=== PATIENT | male | born 1990 | race Caucasian/White ===

== ENCOUNTER 2024-10-09 10:02 | Emergency (ER) | payer BC, SELFPAY ==
[2024-10-09] VITALS (10 sets, daily range): BP systolic 105–140; BP diastolic 78–90; PULSE 65–81; RESP 14–16; TEMP 36.6; O2SAT 95–99
--- NOTE | ~2024-10-09 | XR_ITS ---
Portable chest x-ray Comparison: None Clinical History: Chest pain Findings: Lungs are clear, without focal consolidation or pleural effusion. Cardiomediastinal silho uette is unremarkable. Bones and soft tissues are unremarkable. Impression: Normal chest. Reviewed, dictated and finalized at location M. Impression: Normal chest.
--- NOTE | 2024-10-09 10:30 | ED_ITS ---
HPI - Chest Pain General Chief Complaint: Chest Pain Stated Complaint: PAIN WITH BREATHING Time Seen by Provider: 10/09/24 10:22 Source: patient Mode of arrival: ambulatory Limitations: no limitations History of Present Illness HPI narrative: 34-year-old male with a history of smoking the past 12 years( off and on) presents to the ED with a 2 day history of -- left chest pain. Pain is rated a 6/10. No radiation of the pain. Pain is not related to activity. No exacerbating or relieving factors. Pain is a dull ache. No cough or sputum production. No shortness of breath. No prior episodes of chest pain. MD complaint: chest pain Onset (ago): day(s) ( Two days) Timing of current episode: episodic Prior episodes: No Pain location: left chest Pain radiation: none Severity: moderate Pain scale (0-10): 6 Quality: aching Relieving factors: nothing Exacerbating factors: nothing Treatment prior to arrival: none Risk Factors Coronary artery disease risk factors: smoking history Related Data Allergies Allergy/AdvReac Type Severity Reaction Status Date / Time No Known Allergies Allergy Verified 10/09/24 10:10 Review of Systems 2 Review of Systems: All systems reviewed & are unremarkable except as noted in HPI and below Constitutional: Constitutional: Reports as per HPI and Reports no additional constitutional complaints Eyes: Eyes: Reports as per HPI and Reports no additional eye complaints ENT: Reports system reviewed and no additional complaints, except as documented and Reports as per HPI Cardiovascular: Cardiovascular: Reports as per HPI, Reports no additional cardiovascular complaints and Reports chest pain Respiratory: Respiratory: Reports as per HPI and Reports no additional respiratory complaints Gastrointestinal: Gastrointestinal: Reports as per HPI and Reports no additional gastrointestinal complaints Genitourinary: Genitourinary: Reports no additional male genitourinary complaints and Reports as per HPI Musculoskeletal: Musculoskeletal: Reports no additional musculoskeletal complaints and Reports as per HPI Integumentary/Breasts: Skin/Breast: Reports system reviewed and no additional complaints, except as docu and Reports as per HPI Neurologic: Reports system reviewed and no additional complaints, except as documented and Reports as per HPI Psychiatric: Psychiatric: Reports no additional psychiatric complaints and Reports as per HPI Endocrine: Endocrine: Reports no additional endocrine complaints and Reports as per HPI Hematologic/Lymphatic: Hematologic/Lymphatic: Reports no additional hematologic/lymphatic complaints and Reports as per HPI Allergic/Immunologic: Allergic/Immunologic: Reports no additional allergic/immunologic complaints and Reports as per [facility] Social History Social History (Updated 10/09/24 @ 10:33 by Silver Kirk MD) Social History: smoker Exam 2 Narrative: vitals are stable. Oxygen saturation of 99% on room air with a respiratory rate of 14. Const: General: healthy appearing and no acute distress Nutritional Appearance: well nourished Orientation/consciousness: patient oriented x3 Limitations: no limitations HENMT: Head: normal to inspection Ears: external ears normal F ciera/Nose/Sinus: Normal external nose present Face and sinus: normal facial exam Mouth: Yes Normal oral and palatal mucosa present Throat: posterior oropharynx normal Eyes: Conjunctivae: conjunctivae normal Pupils: Equal, round and reactive pupils present EOM: EOMs intact bilaterally Direct Ophthalmoscopy: no photophobia Neck: Neck: normal visual inspection, no lymphadenopathy and no meningeal signs Chest: Chest palpation & inspection: normal inspection of the chest Resp: Effort & Inspection: normal respiratory effort Auscultation: clear to auscultation bilaterally Cardio: Rate: regular rate Rhythm: regular rhythm Other: Left chest tenderness. GI: Auscultation: normal bowel sounds Other: No tenderness/rigidity / rebound. : General: Yes no CVA tenderness Male General Exam: Yes normal external exam Back/Spine/Pelvis: Back: no CVA tenderness Skin: General skin exam: normal color Rashes: no rashes Wounds: no wounds Neuro: General: patient oriented x3, moves all extremities, no meningeal signs, no focal motor deficits and CN's II-XI intact bilaterally Speech: n ormal speech Extrem: General: normal to inspection and no clubbing, cyanosis or edema Psych: Mental Status: mental status grossly normal Affect: normal affect Attitude: cooperative Course Course Emergency Course: Left chest pain-- EKG was unremarkable. Normal troponin. microcytic hypochromic anemia-- mother and father have a history of thalassemia. Vital Signs Vital signs: Vital Signs Temperature 36.6 C 10/09/24 10:05 Pulse Rate 81 10/09/24 10:05 Respiratory Rate 14 10/09/24 10:05 Blood Pressure 140/85 10/09/24 10:05 Pulse Oximetry 99 10/09/24 10:05 Oxygen Delivery Room Air 10/09/24 10:05 Temperature 36.6 C 10/09/24 10:05 Pulse Rate 66 10/09/24 10:31 Respiratory Rate 14 10/09/24 10:31 Blood Pressure 105/90 10/09/24 10:31 Pulse Oximetry 95 10/09/24 10:45 Oxygen Delivery Room Air 10/09/24 10:05 MDM - Chest Pain MDM Narrative Medical decision making narrative: left chest pain Lab Data 10/09/24 10:47 10/09/24 10:47 Labs: Lab Results 10/09/24 Range/Units 10:47 WBC 11.3 H (4.8-10.8) K/mm3 RBC 6.73 H (4.70-6.10) M/mm3 Hgb 13.1 L (14.0-18.0) g/dL Hct 41.8 (40.0-54.0) % MCV 62.1 L (78.0-102.0) fL MCH 19.5 L (27.0-31.0) pg MCHC 31.3 L (32-36) g/dL RDW 17.0 H (11.6-14.4) % Plt Count 153 (150-420) K/mm3 MPV Not Reportable Immature Gran % (Auto) 0.4 H (0.0-0.0) % Neut % (Auto) 75.2 H (50.0-70.0) % Lymph % (Auto) 14.9 L (18.0-42.0) % Woodson % (Auto) 5.6 (2.0-11.0) % Eos % (Auto) 3.3 (1.0-6.0) % Baso % (Auto) 0.6 (0.0-1.0) % Lymph # (Auto) 1.68 (1.10-4.50) K/mm3 Woodson # (Auto) 0.63 (0.10-0.90) K/mm3 Eos # (Auto) 0.37 (0.02-0.50) K/mm3 Baso # (Auto) 0.07 (0.00-0.10) K/mm3 Abs Immat Gran (auto) 0.05 H (0.00-0.00) K/mm3 Absolute Neuts (auto) 8.46 H (1.70-7.20) K/mm3 Absolute Nucleated RBC 0.00 (0.00-0.00) K/mm3 Nucleated RBC % 0.0 (0-0.0) % % Immature Plt Fraction 3.7 (1.0-7.0) % Sodium 139 (136-145) mmol/L Potassium 4.2 (3.5-5.1) mmol/L Chloride 102 (98-108) mmol/L Carbon Dioxide 28 (21-32) mmol/L Anion Gap 9 (4-12) mmol/L BUN 11 (7-18) mg/dL Creatinine 0.74 (0.70-1.30) mg/dL Estim Creat Clear Calc 136 ml/min Estimated GFR > 60 (59 - ) Glucose 98 (70-99) mg/dL Calculated Osmolality 287 (285-295) mOsm/kg Calcium 9.1 (8.5-10.1) mg/dL Total Bilirubin 0.5 (0.00-1.00) mg/dL AST < 10 L (15-37) U/L ALT 25 (16-63) U/L Alkaline Phosphatase 82 (46-116) U/L Troponin I 4.2 (0.00-60.4) ng/L Total Protein 7.5 (6.4-8.2) g/dL Albumin 4.6 (3.4-5.0) g/dL ECG Data EKG #1: ECG completion date: 10/09/24 ECG completion time: 10:11 Interpretation: normal sinus rhythm. Right axis deviation. No ST elevation. Discharge Plan Discharge Clinical Impression: Atypical chest pain Patient Disposition: Home, Self-Care Condition: Stable Instructions: Antibiotic Form, Chest Wall Pain (ED) Patient Language: Korean Follow-up/Referrals: UNKNOWN,DOCTOR [Primary Care Provider] - Time of Disposition: 11:44
--- NOTE | 2024-10-09 10:36 | ECG_ITS ---
Test Date: 2024-10-09 10:11:35 Measurements Intervals [place] Rate: 96 P: 50 WI: 158 QRS: 106 QRSD: 89 T: 0 QT: 321 QTc: 407 Interpretive Statements SINUS RHYTHM POSSIBLE RIGHT VENTRICULAR HYPERTROPHY [SOME/ALL OF: PROMINENT R IN V1, LATE TRANSITION, RAD, JORDEN, SSS] No previous ECG available for comparison Electronically Signed On 10-09-2024 13:15:48 CDT by Adria Mendoza M.D.
[2024-10-09 10:54] LABS: Basophils Absolute Auto 0.07 K/mm3 (0.00-0.10); Basophils Percent Auto 0.6 % (0.0-1.0); Eosinophils Absolute Auto 0.37 K/mm3 (0.02-0.50); Eosinophils Percent Auto 3.3 % (1.0-6.0); Hematocrit 41.8 % (40.0-54.0); Hemoglobin 13.1 g/dL (14.0-18.0); Immature Granulocyte Absolute 0.05 K/mm3 (0.00-0.00); Immature Granulocyte Percent A 0.4 % (0.0-0.0); Immature Platelet Fraction Pct 3.7 % (1.0-7.0); Lymphocytes Absolute Auto 1.68 K/mm3 (1.10-4.50); Lymphocytes Percent Auto 14.9 % (18.0-42.0); Mean Corpuscular HGB Conc 31.3 g/dL (32-36); Mean Corpuscular Hemoglobin 19.5 pg (27.0-31.0); Mean Corpuscular Volume 62.1 fL (78.0-102.0); Monocytes Absolute Auto 0.63 K/mm3 (0.10-0.90); Monocytes Percent Auto 5.6 % (2.0-11.0); Neutrophils Absolute Auto 8.46 K/mm3 (1.70-7.20); Neutrophils Percent Auto 75.2 % (50.0-70.0); Platelet Count Result 153 K/mm3 (150-420); Red Blood Count 6.73 M/mm3 (4.70-6.10); White Blood Count 11.3 K/mm3 (4.8-10.8)
--- OUTSIDE RECORDS SUMMARY | 2024-10-09 11:08 | XMS_ITS | Clinical Summary ---
Author Organization [facility] [address] Address [address] [facility] [address] [place] [address] Care Team Providers Care Physicist Nuclear Name Role Phone Colton Moreira MD Primary Care Provider [phone] Allergies Active Allergy Reactions Criticality Noted Date Comments Sulfa Rash Medium 02/16/2024 Medications multivitamin tabletIndicatio ns:Vitamin Deficiency Prevention Take 1 tablet by mouth Active melatonin 5 mg tablet nightly as needed Active sertraline (ZOLOFT) 25 mg tablet Take 1 tablet (25 mg total) by mouth daily 90 tablet 02/16/2024 Active Active Problems Problem Noted Date Diagnosed Date Encounter to establish care 02/16/2024 Assessment & Plan (02/16/2024 8:52 PM CDT): Patient's medical history, family history, medication list reviewed and updated. PHQ-9 and generalized anxiety questionnaire reviewed. He is currently self-pay. Would like to hold off on blood work. Discussed importance of diet and exercise Generalized anxiety disorder 02/16/2024 Assessment & Plan (02/16/2024 8:53 PM CDT): We discussed this in detail. Wanting to try medication. We discussed sertraline and its role. Side effects of the medication reviewed. He verbalizes understanding be interested in trying. Will started 25 mg and do close follow-up in 4 weeks. Will likely need a titration up. He verbalizes understanding. Immunizations Immunization Administration Dates Next Due Influenza, Unspecified 04/30/2023 Medical History Medical History Date Comments Anxiety Family History Medical History Relation Name Comments No Known Problems Brother Hypertension Father Hypothyroidism Mother No Known Problems Sister Relation Name Status Comments Brother Alive Father Alive Mother Alive Sister Alive Social History Tobacco Use Types Packs/Day Years Used Date Smoking Tobacco: Some Days Cigarettes Smokeless Tobacco: Never Tobacco Cessation:Ready to Q uit: Not Asked; Counseling Given: Not Answered AUDIT-C Answer Date Recorded Q1: How often do you have a drink containing alc ohol? Never 02/16/2024 Average Number of Drinks Not on file 024 Frequency of Binge Drinking Not on file 01/28 PHQ-2 Answer Date Recorded PHQ-2 Total Score (If total score is 3 or more points, staff should administer the PHQ-9) 2 02/16/2024 Personal Safety Answer Date Recorded Getting School Help Needed Not on file 02/11 Sex and Gender Information Value Date Recorded Sex Assigned at Not on file Legal Sex Male 1:07 PM CDT Gender Identity Not on file Sexual Orientation Not on file Obstetrics History Last Filed Vital Signs Vital Sign Reading Time Taken Comments Blood Pressure 120/78 02/16/2024 10:34 AM CDT Pulse 82 02/16/2024 10:34 AM CDT Temperature - - Respiratory Rate - - Oxygen Saturation 98% 02/16/2024 10:34 AM CDT Inhaled Oxygen Concentration - - Weight 93.1 kg (205 lb 3.2 oz) 02/16/2024 10:34 AM CDT Height 180.3 cm (5' 11 ) 02/16/2024 10:34 AM CDT Body Mass Index 28.62 02/16/2024 10:34 AM CDT Plan of Treatment Health Maintenance Due Date Last Done Comments Hepatitis C Screening 1992 Varicella Vaccines (1 of 2 - 13+ 2-dose series) 2005 Pneumococcal vaccine <65 (1 of 2 - PCV) 2011 Influenza Vaccine (#1) 2024 04/30/2023, 2016 Depression Screening 02/15/2025 02/16/2024, 02/16/20 24 Regular Well Visit/Exam 18-64 02/15/2025 02/16/2024 DTaP/Tdap/Td Vaccine (7 - Td or Tdap) 08/10/2030 08/10/2020, 04/10/1997, 09/10/1993, Additional history exists Hepatitis B Screening Completed 1992 , 1992, 1992 HPV Vaccines Aged Out No longer eligi ble based on patient's age to complete this topic Insurance [facility] Care Teams Physicist Nuclear Relationship Specialty Start Date End Date Colton Moreira MD [address] [address] PCP - General Internal Medicine 02/16/24
--- OUTSIDE RECORDS SUMMARY | 2024-10-09 11:08 | XMS_ITS | Clinical Summary ---
Author Organization [facility] Address [address] [place] [address] Care Team Providers Care Philosophy And Religion Instructor Name Role Phone Nacho Ramirez MD Primary Care Provider [phone] Allergies Active Allergy Reactions Criticality Noted Date Comments Sulfa Antibiotics Hives Medium 08/10/2020 Medications No known medications Active Problems No known active problems Immunizations Name Administration Dates Next Due Tdap (Boostrix) 08/10/2020 Family History Medical History Relation Comments Diabetes Paternal Grandfather Relation Status Comments Paternal Grandfather Social History Tobacco Use Types Packs/Day Years Used Date Smoking Tobacco: Never Cigarettes Smokeless Tobacco: Never Alcohol Use Standard Drinks/Week Comments Yes 0 (1 standard drink = 0.6 oz pur e alcohol) occassioanl Sex and Gender Information Value Date Recorded Sex Assigned at Not on file Legal Sex Male 8:59 PM CDT Gender Identity Not on file Sexual Orientation Not on file Last Filed Vital Signs Vital Sign Reading Time Taken Comments Blood Pressure 134/89 06/10/2022 9:38 AM LENS BLANK GAUGER Pulse 75 06/10/2022 9:38 AM LENS BLANK GAUGER Temperature 36.7 C (98 F) 06/10/2022 9:38 AM LENS BLANK GAUGER Respiratory Rate 16 06/10/2022 9:38 AM LENS BLANK GAUGER Oxygen Saturation 100% 06/10/2022 9:38 AM LENS BLANK GAUGER Inhaled Oxygen Concentration - - Weight 80.9 kg (178 lb 4 oz) 06/10/2022 9:38 AM LENS BLANK GAUGER Height 182.9 cm (6') 06/10/2022 9:38 AM LENS BLANK GAUGER Body Mass Index 24.18 06/10/2022 9:38 AM LENS BLANK GAUGER Plan of Treatment Health Maintenance Due Date Last Done Comments Annual Physical 1995 Hepatitis C 2010 Hepatitis B Vaccines (1 of 3 - 19+ 3-dose series) 2011 COVID-19 Vaccine (1 - 2023-2 5 season) 2024 Influenza Adult (#1) 2024 DTaP, Tdap and Td Vaccines ( 2 - Td or Tdap) 08/10/2030 08/10/2020 HPV Vaccines Aged Out No longer eligi ble based on patient's age to complete this topic Meningococcal B Vaccine Aged Out No l onger eligible based on patient's age to complete this topic Meningococcal Vaccine Aged Out No arpit betsey eligible based on patient's age to complete this topic Pneumococcal Vaccine: Pediat rics (0 to 5 Years) and At-Risk Patients (6 to 64 Years) Aged Out No longer eligi ble based on patient's age to complete this topic RSV Immunizations Under 20 Months Aged Out No longer eligible based on patient's age to complete this topic [place] [address] [place] [address] Care Teams Philosophy And Religion Instructor Relationship Specialty Start Date End Date Nacho Ramirez MD [address] [place] [address] PCP - General INTERNAL MEDICINE 08/10/20
--- OUTSIDE RECORDS SUMMARY | 2024-10-09 11:08 | XMS_ITS | Referral Summary ---
Author Organization [facility] [address] Address [address] [facility] 5th [place] [address] Care Team Providers Care Forging Operator Name Role Phone Colton Moreira MD Primary Care Provider [phone] Allergies Active Allergy Reactions Criticality Noted Date [...] Administration Dates Next Due Influenza, Unspecified 04/30/2023 Social History Tobacco Use Types Packs/Day Years [...] 02/16/2024 10:34 AM CDT Plan of Treatment Not on file Insurance [facility] Care Teams Forging Operator Relationship Specialty Start Date End Date Colton Moreira MD [address] [address] PCP - General Internal Medicine 02/16/24
[2024-10-09 11:10] LABS: Alanine Aminotransferase 25 U/L (16-63); Albumin Level 4.6 g/dL (3.4-5.0); Alkaline Phosphatase 82 U/L (46-116); Anion Gap 9 mmol/L (4-12); Aspartate Amino Transferase < 10 U/L (15-37); Bilirubin,Total 0.5 mg/dL (0.00-1.00); Blood Urea Nitrogen 11 mg/dL (7-18); Calcium 9.1 mg/dL (8.5-10.1); Carbon Dioxide 28 mmol/L (21-32); Chloride 102 mmol/L (98-108); Estimated CRCL calculation 136 ml/min; Estimated Glomerular Filt Rate > 60; Glucose 98 mg/dL (70-99); Osmolality Calculated 287 mOsm/kg (285-295); Potassium 4.2 mmol/L (3.5-5.1); Sodium 139 mmol/L (136-145); Total Protein 7.5 g/dL (6.4-8.2); Troponin I 4.2 ng/L (0.00-60.4)
--- OUTSIDE RECORDS SUMMARY | 2024-10-09 12:05 | XMS_ITS | Clinical Summary ---
Author Organization [facility] Address [address] [place] [address] Care Team Providers Care Engineering Job Titles Name Role Phone Nacho Ramirez MD Primary Care Provider [phone] Allergies Active Allergy Reactions Criticality Noted Date [...] Comments Blood Pressure 134/89 06/10/2022 9:38 AM CUSTOMER SUPPORT EXECUTIVE Pulse 75 06/10/2022 9:38 AM CUSTOMER SUPPORT EXECUTIVE Temperature 36.7 C (98 F) 06/10/2022 9:38 AM CUSTOMER SUPPORT EXECUTIVE Respiratory Rate 16 06/10/2022 9:38 AM CUSTOMER SUPPORT EXECUTIVE Oxygen Saturation 100% 06/10/2022 9:38 AM CUSTOMER SUPPORT EXECUTIVE Inhaled Oxygen Concentration - - Weight 80.9 kg (178 lb 4 oz) 06/10/2022 9:38 AM CUSTOMER SUPPORT EXECUTIVE Height 182.9 cm (6') 06/10/2022 9:38 AM CUSTOMER SUPPORT EXECUTIVE Body Mass Index 24.18 06/10/2022 9:38 AM CUSTOMER SUPPORT EXECUTIVE Plan of Treatment Health Maintenance Due Date [...] patient's age to complete this topic Insurance [address] [address] Care Teams Engineering Job Titles Relationship Specialty Start Date End Date Nacho Ramirez MD [address] [place] [address] PCP - General INTERNAL MEDICINE 08/10/20
--- OUTSIDE RECORDS SUMMARY | 2024-10-09 12:05 | XMS_ITS | Clinical Summary ---
Author Organization [facility] [address] Address [address] [place] [address] Care Team Providers Care Seasonal Customer Service Associate Name Role Phone Colton Moerira MD Primary Care Provider Allergies Active Allergy Reactions Criticality Noted Date [...] patient's age to complete this topic Insurance [facility] Care Teams Seasonal Customer Service Associate Relationship Specialty Start Date End Date Colton Moreira MD [address] [address] PCP - General Internal Medicine 02/16/24
--- OUTSIDE RECORDS SUMMARY | 2024-10-09 12:05 | XMS_ITS | Referral Summary ---
Author Organization [facility] [address] Address [address] [facility] 5th [place] [address] Care Team Providers Care Forensic Materials Engineer Name Role Phone Colton Moreira MD Primary Care Provider [phone] Allergies Active Allergy Reactions Criticality Noted Date [...] Plan of Treatment Not on file Insurance [facility] Care Teams Forensic Materials Engineer Relationship Specialty Start Date End Date Colton Moreira MD [address] [address] PCP - General Internal Medicine 02/16/24
== END 2024-10-09 11:56 | disposition home or self-care (01) ==
PROVIDERS: Emergency Provider Internal Medicine Critical Care Medicine
DX: R07.89 Other chest pain (principal); F17.200 Nicotine dependence, unspecified, uncomplicated
CPT/HCPCS: 36415; 71045; 80053; 84484; 85025; 85055; 93005; 99284

== ENCOUNTER 2025-03-31 13:44 | Emergency (ER) | payer BC, SELFPAY ==
--- NOTE | ~2025-03-31 | CT_ITS ---
EXAMINATION: CT brain wo con DATE: 03/31/2025 14:34 INDICATION: Persistent headaches TECHNIQUE: Computed tomography (CT) of the head was performed without intravenous contrast. Sagittal and coronal reconstructions were performed. The mA was adjusted according to patient size. Iterative reconstruction technique was employed. The dose-length product was 605.33 mGy-cm. COMPARISON: None FINDINGS: No acute intracranial hemorrhage or acute infarction. Likely incidental CSF attenuation right posterior fossa arachnoid cyst which exerts mild mass effect upon the medial aspect of the posterior right cerebellar hemisphere. Ventricles are normal and symmetric. No intracranial mass. The orbits, paranasal sinuses and mastoid air cells are normal. IMPRESSION: 1. Incidental right posterior fossa arachnoid cyst. Normal brain with no acute intracranial process. Reviewed, dictated and finalized at location A.
[2025-03-31 13:44] VITALS: BP 148/104; PULSE 88; RESP 16; TEMP 36.7; O2SAT 97
--- OUTSIDE RECORDS SUMMARY | 2025-03-31 13:50 | XMS_ITS | Clinical Summary ---
Author Organization [facility] Address [address] [place] [address] Care Team Providers Care Front End Developer Javascript Html Css Name Role Phone Nacho Ramirez MD Primary Care Provider [phone] Allergies Active Allergy Reactions Criticality Noted Date Comments Sulfa Antibiotics Hives Medium 08/10/2020 Medications No known medications Active Problems No known active problems Immunizations Immunization Administration Dates Next Due Tdap (Boostrix) 08/10/2020 [...] Comments Blood Pressure 134/89 06/10/2022 9:38 AM EMERGENCY REGISTRAR Pulse 75 06/10/2022 9:38 AM EMERGENCY REGISTRAR Temperature 36.7 C (98 F) 06/10/2022 9:38 AM EMERGENCY REGISTRAR Respiratory Rate 16 06/10/2022 9:38 AM EMERGENCY REGISTRAR Oxygen Saturation 100% 06/10/2022 9:38 AM EMERGENCY REGISTRAR Inhaled Oxygen Concentration - - Weight 80.9 kg (178 lb 4 oz) 06/10/2022 9:38 AM EMERGENCY REGISTRAR Height 182.9 cm (6') 06/10/2022 9:38 AM EMERGENCY REGISTRAR Body Mass Index 24.18 06/10/2022 9:38 AM EMERGENCY REGISTRAR Plan of Treatment Health Maintenance Due Date Last Done Comments Annual Physical 1995 Hepatitis C 2010 Hepatitis B Vaccines (1 of 3 - 19+ 3-dose series) 2011 HPV Vaccines (1 - 3-dose SCD M series) 2019 COVID-19 Vaccine (1 - 2023-2 5 season) 2024 DTaP, Tdap and Td Vaccines ( 2 - Td or Tdap) 08/10/2030 08/10/2020 Meningococcal B Vaccine Aged Out No l onger eligible based on patient's age to complete this topic Meningococcal Vaccine Aged Out No arpit bestey eligible based on patient's age to complete this topic Pneumococcal Vaccine: Pediat rics (0 to 5 Years) and At-Risk Patients (6 to 49 Years) Aged Out No longer eligi ble based on patient's age to complete this topic RSV Immunizations Under 20 Months Aged Out No longer eligible based on patient's age to complete this topic Insurance Care Teams Front End Developer Javascript Html Css Relationship Specialty Start Date End Date Nacho Ramirez MD [address] [place] [address] PCP - General INTERNAL MEDICINE 08/10/20
--- OUTSIDE RECORDS SUMMARY | 2025-03-31 13:50 | XMS_ITS | Patient Health Record ---
Author Organization [facility] Address [address] [facility] [address] [place] [address] Care Team Providers Care Network Security Administrator Name Role Phone Leslye Dominguez Unavailable [phone] Reason For Referral No Information Social History Social History Additional Details Category Social Info Options Details Migrated Social History Migrated Social History Alcohol Intake: Occasional 06/02/2020,Tobacco Years: Never smoker 06/02/2020 Plan Of Treatment No Information Insurance Providers Payer Name Payer Address Payer Phone Subscriber Number Group Number Insured Name Patient Relationship to Insured Coverage Start Date Coverage End Date [employer] [address] [place] [address] [id number] AUDRA JUAREZ Self - patient is the insured [employer] Ppo [address] [place] [address] [id number] AUDRA JUAREZ Self - patient is the insured
--- NOTE | 2025-03-31 14:00 | PC.NURSE ---
Pt to CT scanner with radiology transport.
--- NOTE | 2025-03-31 14:11 | ED.HA ---
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 Patient was mostly wanting a brain scan to look at his skull. He has a right parietal indentation chronically since . MD elicited complaint: headache Pertinent past history: other ( Negative) Onset (ago): year(s) Onset description: gradually ( headache) and other ( chronic scalp /skull indentation since childhood) Location: right and parietal Severity: mild Pain scale (0-10): 3 Quality & Timing: aching, dull and intermittent Exacerbating factors: none Relieving factors: nothing Context: occurred at rest Associated symptoms: none Treatments prior to arrival: none Related Data Allergies Allergy/AdvReac Type Severity Reaction Status Date / Time No Known Allergies Allergy Verified 03/31/25 13:53 Review of Systems Review of Systems: All systems reviewed & are unremarkable except as noted in HPI and below Constitutional: Constitutional: Reports no additional constitutional complaints Eyes: Eyes: Reports no additional eye complaints ENT: Reports system reviewed and no additional complaints, except as documented Cardiovascular: Cardiovascular: Reports no additional cardiovascular complaints Respiratory: Respiratory: Reports no additional respiratory complaints Gastrointestinal: Gastrointestinal: Reports no additional gastrointestinal complaints Genitourinary: Genitourinary: Reports no additional male genitourinary complaints Musculoskeletal: Musculoskeletal: Reports no additional musculoskeletal complaints Integumentary/Breasts: Skin/Breast: Reports system reviewed and no additional complaints, except as docu Neurologic: Reports system reviewed and no additional complaints, except as documented Psychiatric: Psychiatric: Reports no additional psychiatric complaints Endocrine: Endocrine: Reports no additional endocrine complaints Hematologic/Lymphatic: Hematologic/Lymphatic: Reports no additional hematologic/lymphatic complaints Allergic/Immunologic: Allergic/Immunologic: Reports no additional allergic/immunologic complaints PMFSH Social History Social History Social History: smoker Exam Const: General: healthy appearing Nutritional Appearance: well nourished Orientation/consciousness: patient oriented x3 HENMT: Head: normal to inspection Ears: external ears normal Face/Nose/Sinus: Normal external nose present Other: right parietal region has a small indentation of the skull which patient said has been the same and chronically since childhood Eyes: Conjunctivae: conjunctivae normal Pupils: Equal, round and reactive pupils present EOM: EOMs intact bilaterally Neck: Neck: normal visual inspection Chest: Chest palpation & inspection: normal inspection of the chest Resp: Effort & Inspection: normal respiratory effort and not labored Auscultation: clear to auscultation bilaterally and no crackles Cardio: Rate: regular rate Rhythm: regular rhythm Heart sounds: no murmurs GI: Inspection: non-distended GI Palp: Yes Soft to palpation and No Tenderness to palpation present (GI) Auscultation: normal bowel sounds : General: Yes bladder normal to palpation Back/Spine/Pelvis: Back: no CVA tenderness Skin: General skin exam: normal color Rashes: no rashes Wounds: no wounds Neuro: General: patient oriented x3, moves all extremities, no meningeal signs, no focal motor deficits and CN's II-XI intact bilaterally Cranial nerves: Yes Nystagmus not present Speech: normal speech Gait exam (Neuro): Normal gait present Other: fast exam negative, NIH score is 0, GCS is 15 Extrem: General: normal to inspection Psych: Mental Status: mental status grossly normal Affect: normal affect Attitude: cooperative Course Vital Signs Vital signs: Vital Signs Temperature 36.7 C 03/31/25 13:44 Pulse Rate 88 03/31/25 13:44 Respiratory Rate 16 03/31/25 13:44 Blood Pressure 148/104 H 03/31/25 13:44 Pulse Oximetry 97 03/31/25 13:44 Oxygen Delivery Room Air 03/31/25 13:44 Temperature 36.7 C 03/31/25 16:15 Pulse Rate 73 03/31/25 16:15 Respiratory Rate 18 03/31/25 16:15 Blood Pressure 142/104 H 03/31/25 16:15 Pulse Oximetry 97 03/31/25 16:15 Oxygen Delivery Room Air 03/31/25 16:15 MDM - Headache MDM Narrative Medical decision making narrative: patient is a 35-year-old male with a small headache and concerns for an indentation on his skull since childhood. CT scan head for reassurance. Imaging Data Attestation: I personally reviewed and interpreted this imaging study as follows: Radiologist's impression: CT scan of the head was showing IMPRESSION: 1. Incidental right posterior fossa arachnoid cyst. Normal brain with no acute intracranial process. Discharge Plan Discharge Clinical Impression: Cephalgia Qualifiers: Headache type: unspecified Headache chronicity pattern: unspecified pattern Intractability: not intractable Qualified Code(s): R51.9 - Headache, unspecified Patient Disposition: Home Condition: Stable Instructions: Acute Headache (ED) Patient Language: Latvian Follow-up/Referrals: Zayra,TREY Brown [Primary Care Provider, Unknown] Time of Disposition: 16:02
--- OUTSIDE RECORDS SUMMARY | 2025-03-31 14:22 | XMS_ITS | Clinical Summary ---
Author Organization [facility] Address [address] [place] [id number] Care Team Providers Care Solution Specialist Name Role Phone Nacho Ramirez MD Primary Care Provider +1- [phone] Allergies Active Allergy Reactions Criticality Noted Date [...] Comments Blood Pressure 134/89 06/10/2022 9:38 AM [employer] [facility] Pulse 75 06/10/2022 9:38 AM [employer] Temperature 36.7 C (98 F) 06/10/2022 9:38 AM [employer] [facility] Respiratory Rate 16 06/10/2022 9:38 AM [employer] [facility] Oxygen Saturation 100% 06/10/2022 9:38 AM [employer] [facility] Inhaled Oxygen Concentration - - Weight 80.9 kg (178 lb 4 oz) 06/10/2022 9:38 AM [employer] [facility] Height 182.9 cm (6') 06/10/2022 9:38 AM [employer] [facility] Body Mass Index 24.18 06/10/2022 9:38 AM [employer] [facility] Plan of Treatment Health Maintenance Due Date [...] to complete this topic Insurance Care Teams Solution Specialist Relationship Specialty Start Date End Date Nacho Ramirez MD [address] [place] [address] PCP - General INTERNAL MEDICINE 08/10/20
--- NOTE | 2025-03-31 14:25 | PC.NURSE ---
Pt back in room from CT scanner.
[2025-03-31 16:15] VITALS: BP 142/104; PULSE 73; RESP 18; TEMP 36.7; O2SAT 97
== END 2025-03-31 16:26 | disposition home or self-care (01) ==
PROVIDERS: Emergency Provider Emergency Medicine; PCP Nurse Practitioner Family
DX: R51.9 Headache, unspecified (principal)
CPT/HCPCS: 70450; 99284

== ENCOUNTER 2025-05-04 17:13 | Emergency (ER) | payer BC, MEDICAID, SELFPAY ==
[2025-05-04 17:13] VITALS: BP 147/97; PULSE 82; RESP 14; TEMP 36.7; O2SAT 97
--- OUTSIDE RECORDS SUMMARY | 2025-05-04 17:19 | XMS_ITS | Clinical Summary ---
Author Organization [facility] Address [address] [place] [address] Care Team Providers Care Goods Layer Name Role Phone Nacho Ramirez MD Primary Care Provider +1- [phone] Allergies Active Allergy Reactions Criticality Noted Date [...] Comments Blood Pressure 134/89 06/10/2022 9:38 AM [employer] Pulse 75 06/10/2022 9:38 AM [employer] Temperature 36.7 C (98 F) 06/10/2022 9:38 AM [employer] Respiratory Rate 16 06/10/2022 9:38 AM [employer] Oxygen Saturation 100% 06/10/2022 9:38 AM [employer] Inhaled Oxygen Concentration - - Weight 80.9 kg (178 lb 4 oz) 06/10/2022 9:38 AM [employer] Height 182.9 cm (6') 06/10/2022 9:38 AM [employer] Body Mass Index 24.18 06/10/2022 9:38 AM [employer] Plan of Treatment Health Maintenance Due Date Last Done Comments Annual Physical 1995 Hepatitis C 2010 Hepatitis B Vaccines (1 of 3 - 19+ 3-dose series) 2011 HPV Vaccines (1 - 3-dose SCD M series) 2019 COVID-19 Vaccine (1 - 2023-2 5 season) 2025 DTaP, Tdap and Td Vaccines ( 2 [...] to complete this topic Insurance Care Teams Goods Layer Relationship Specialty Start Date End Date Nacho Ramirez MD [address] [place] [address] PCP - General INTERNAL MEDICINE 08/10/20
--- OUTSIDE RECORDS SUMMARY | 2025-05-04 17:19 | XMS_ITS | Patient Health Record ---
Author Organization [facility] [employer] Address [address] [facility] [address] [place] [address] Care Team Providers Care Life Scientist Name Role Phone Leslye Dominguez Unavailable [phone] Reason For Referral No Information Social History Social History Additional Details Category Social Info Options Details Migrated Social History Migrated Social History Alcohol Intake: Occasional 06/02/2020,Tobacco Years: Never smoker 06/02/2020 Plan Of Treatment No Information Insurance Providers Payer Name Payer Address Payer Phone Subscriber Number Group Number Insured Name Patient Relationship to Insured Coverage Start Date Coverage End Date [employer] [address] [place] [address] [id number] AUDRA JUAREZ Self - patient is the insured [employer] [address] [place] [address] [id number] AUDRA JUAREZ Self - patient is the insured
--- NOTE | 2025-05-04 17:27 | ED_ITS ---
HPI - GI Bleed General Chief complaint: GI Bleed Stated complaint: blood in stool Time Seen by Provider: 05/04/25 17:27 Source: patient Mode of arrival: ambulatory Limitations: no limitations History of Present Illness HPI Narrative: Patient is a 35-year-old male with a bright red blood per rectum for the past week. He sees bright red blood on the toilet paper and on the stool in streaks. No pain from the rectum. No hematochezia. Patient has this blood syndrome roughly every other day for the past week. Not with every stool. He did have a with last 2 stools. complaint: blood on toilet paper and blood streaked stool Onset (ago): week(s) (One) Pain Consistency: other (None) Severity: mild (Blood seen) Relieving factors: none Exacerbating factors: none Context: other (Patient having bright red blood on the toilet paper and on the stool for the past week and every other day stool) Associated symptoms: denies other symptoms Treatments Prior to Arrival: none Related Data Allergies Allergy/AdvReac Type Severity Reaction Status Date / Time Sulfa (Sulfonamide Allergy Intermediate Rash Verified 05/04/25 17:22 Antibiotics) Review of Systems 2 Review of Systems: All systems reviewed & are unremarkable except as noted in HPI and below Constitutional: Constitutional: Reports no additional constitutional complaints Eyes: Eyes: Reports no additional eye complaints ENT: Reports system reviewed and no additional complaints, except as documented Cardiovascular: Cardiovascular: Reports no additional cardiovascular complaints Respiratory: Respiratory: Reports no additional respiratory complaints Gastrointestinal: Gastrointestinal: Reports no additional gastrointestinal complaints Genitourinary: Genitourinary: Reports no additional male genitourinary complaints Musculoskeletal: Musculoskeletal: Reports no additional musculoskeletal complaints Integumentary/Breasts: Skin/Breast: Reports system reviewed and no additional complaints, except as docu Neurologic: Reports system reviewed and no additional complaints, except as documented Psychiatric: Psychiatric: Reports no additional psychiatric complaints Endocrine: Endocrine: Reports no additional endocrine complaints Hematologic/Lymphatic: Hematologic/Lymphatic: Reports no additional hematologic/lymphatic complaints Allergic/Immunologic: Allergic/Immunologic: Reports no additional allergic/immunologic complaints PMFSH Past Medical History Medical History Major depressive disorder, recurrent episode with anxious distress Insomnia NGUYEN (generalized anxiety disorder) Social History Social History Social History: smoker Smoking status: Never smoker Alcohol intake: never Exam 2 Const: General: healthy appearing Nutritional Appearance: well nourished Orientation/consciousness: patient oriented x3 HENMT: Head: normal to inspection Ears: external ears normal F ciera/Nose/Sinus: Normal external nose present Eyes: Conjunctivae: conjunctivae normal Pupils: Equal, round and reactive pupils present EOM: EOMs intact bilaterally Neck: Neck: normal visual inspection, no lymphadenopathy and no meningeal signs Chest: Chest palpation & inspection: normal inspection of the chest Resp: Effort & Inspection: normal respiratory effort, not labored, no retractions and not tachypneic Auscultation: clear to auscultation bilaterally, no crackles, no rales and no rhonchi Cardio: Rate: regular rate Rhythm: regular rhythm Heart sounds: no murmurs GI: Inspection: non-distended GI Palp: Yes Soft to palpation, No Tenderness to palpation present (GI) and No Guarding due to palpation present (GI) A uscultation: normal bowel sounds Rectal Exam: normal sphincter tone Other: Suspect internal hemorrhoids; patient declined to allow rectal exam for feeling internal hemorrhoids or fissures and for heme testing with guaiac : General: Yes bladder normal to palpation Back/Spine/Pelvis: Back: no CVA tenderness Skin: General skin exam: normal color Rashes: no rashes Wounds: no wounds Neuro: General: patient oriented x3, moves all extremities and no meningeal signs Extrem: General: normal to inspection Psych: Mental Status: mental status grossly normal Affect: normal affect Attitude: cooperative Course Vital Signs Vital signs: Vital Signs Temperature 36.7 C 05/04/25 17:13 Pulse Rate 82 05/04/25 17:13 Respiratory Rate 14 05/04/25 17:13 Blood Pressure 147/97 H 05/04/25 17:13 Pulse Oximetry 97 05/04/25 17:13 Oxygen Delivery Room Air 05/04/25 17:13 Temperature 36.7 C 05/04/25 17:13 Pulse Rate 82 05/04/25 17:13 Respiratory Rate 14 05/04/25 17:13 Blood Pressure 147/97 H 05/04/25 17:13 Pulse Oximetry 97 05/04/25 17:13 Oxygen Delivery Room Air 05/04/25 17:13 MDM - GI Bleed MDM Narrative Medical decision making narrative: Patient is a 35-year-old male with bright red blood per rectum on the stool and on the toilet paper for the past week. Bleeding labs and direct examination. Based on complaint, patient has internal hemorrhoids. Patient did not allow digital rectal exam. Lab Data Attestation: I reviewed the patient's lab results. 05/04/25 18:11 05/04/25 18:11 Labs: Lab Results 05/04/25 Range/Units 18:11 WBC 9.2 (4.8-10.8) K/mm3 RBC 6.08 (4.70-6.10) M/mm3 Hgb 12.0 L (14.0-18.0) g/dL Hct 37.8 L (40.0-54.0) % MCV 62.2 L (78.0-102.0) fL MCH 19.7 L (27.0-31.0) pg MCHC 31.7 L (32-36) g/dL RDW 15.9 H (11.6-14.4) % Plt Count 167 (150-420) K/mm3 MPV Not Reportable Immature Gran % (Auto) 0.5 H (0.0-0.0) % Neut % (Auto) 66.5 (50.0-70.0) % Lymph % (Auto) 25.1 (18.0-42.0) % [place] % (Auto) 6.0 (2.0-11.0) % Eos % (Auto) 1.4 (1.0-6.0) % Baso % (Auto) 0.5 (0.0-1.0) % Lymph # (Auto) 2.32 (1.10-4.50) K/mm3 [place] # (Auto) 0.55 (0.10-0.90) K/mm3 Eos # (Auto) 0.13 (0.02-0.50) K/mm3 Baso # (Auto) 0.05 (0.00-0.10) K/mm3 Abs Immat Gran (auto) 0.05 H (0.00-0.00) K/mm3 Absolute Neuts (auto) 6.14 (1.70-7.20) K/mm3 Absolute Nucleated RBC 0.00 (0.00-0.00) K/mm3 Nucleated RBC % 0.0 (0-0.0) % % Immature Plt Fraction 3.0 (1.0-7.0) % PT 10.7 (9.50-12.1) Seconds INR 1.0 APTT 28.2 (23.9-30.70) Sec Sodium 140 (137-145) mmol/L Potassium 3.8 (3.4-5.0) mmol/L Chloride 101 (98-107) mmol/L Carbon Dioxide 26 (22-30) mmol/L Anion Gap 13 H (4-12) mmol/L BUN 15 (9-20) mg/dL Creatinine 0.71 (0.7-1.3) mg/dL Estim Creat Clear Calc 140 ml/min Estimated GFR > 60 (59 - ) Glucose 99 (65-110) mg/dL Calculated Osmolality 290 (285-295) mOsm/kg Calcium 9.6 (8.4-10.2) mg/dL Total Bilirubin 0.7 (0.2-1.3) mg/dL AST 36 (17-59) U/L ALT 42 (6-50) U/L Alkaline Phosphatase 55 (38-126) U/L Total Protein 8.1 (6.3-8.2) g/dL Albumin 5.0 (3.5-5.1) g/dL Discharge Plan Discharge Clinical Impression: Inflamed internal hemorrhoid Patient Disposition: Home Condition: Stable Instructions: Hemorrhoids (ED) Additional Instructions: Please follow-up with the primary doctor in the next week. I suggest a rn coronary care unit if continued GI bleeding. You may need a lower endoscopy. Please get stool softener and use that until the bleeding has stopped. You can get [id number] preparation H which comes with a long tube to get internal hemorrhoids. Come back to the ER for continued bleeding. Your hemoglobin is 12 and I suggested outpatient CBC recheck in the next few weeks. Patient Language: Gabonese Follow-up/Referrals: Zayra,TREY Brown [Primary Care Provider, Unknown] Time of Disposition: 19:15
[2025-05-04 18:57] LABS: Hematocrit 37.8 % (40.0-54.0); Hemoglobin 12.0 g/dL (14.0-18.0); Immature Granulocyte Percent A 0.5 % (0.0-0.0); Immature Platelet Fraction Pct 3.0 % (1.0-7.0); Lymphocytes Absolute Auto 2.32 K/mm3 (1.10-4.50); Mean Corpuscular HGB Conc 31.7 g/dL (32-36); Mean Corpuscular Hemoglobin 19.7 pg (27.0-31.0); Mean Corpuscular Volume 62.2 fL (78.0-102.0); Nucleated Red Blood Cells Absolute Auto 0.00 K/mm3 (0.00-0.00); Nucleated Red Blood Cells Perc 0.0 % (0-0.0); Platelet Count Result 167 K/mm3 (150-420); Red Blood Count 6.08 M/mm3 (4.70-6.10); White Blood Count 9.2 K/mm3 (4.8-10.8)
[2025-05-04 19:03] LABS: Alanine Aminotransferase 42 U/L (6-50); Albumin Level 5.0 g/dL (3.5-5.1); Alkaline Phosphatase 55 U/L (38-126); Anion Gap 13 mmol/L (4-12); Aspartate Amino Transferase 36 U/L (17-59); Bilirubin,Total 0.7 mg/dL (0.2-1.3); Blood Urea Nitrogen 15 mg/dL (9-20); Calcium 9.6 mg/dL (8.4-10.2); Carbon Dioxide 26 mmol/L (22-30); Chloride 101 mmol/L (98-107); Estimated CRCL calculation 140 ml/min; Estimated Glomerular Filt Rate > 60; Glucose 99 mg/dL (65-110); Osmolality Calculated 290 mOsm/kg (285-295); Potassium 3.8 mmol/L (3.4-5.0); Sodium 140 mmol/L (137-145); Total Protein 8.1 g/dL (6.3-8.2)
[2025-05-04 19:06] LABS: INR 1.0; Partial Thromboplastin Time 28.2 Sec (23.9-30.70); Prothrombin Time 10.7 Seconds (9.50-12.1)
[2025-05-04 19:16] VITALS: BP 129/84; PULSE 62; RESP 20; TEMP 36.5; O2SAT 99
== END 2025-05-04 19:22 | disposition home or self-care (01) ==
PROVIDERS: Emergency Provider Emergency Medicine; PCP Nurse Practitioner Family
DX: K64.8 Other hemorrhoids (principal)
CPT/HCPCS: 36415; 80053; 85025; 85055; 85610; 85730; 99283